=== PATIENT | female | born 1970 | race African-American/Black ===

== ENCOUNTER 2019-08-25 18:04 | Emergency (ER) | payer BC ==
[2019-08-25] MEDS ORDERED: NORMAL SALINE 1000 ML 1,000 ML IV ONE (18:59)
[2019-08-25] MEDS ORDERED: ONDANSETRON 4 MG TAB.RAPDIS PO ONE (19:00)
[2019-08-25] MEDS ORDERED: ACETAMINOPHEN 325 MG TABLET PO ONE (19:00)
--- NOTE | 2019-08-25 19:02 | ER Document Report ---
ED Medical Screen (RME) - General Chief Complaint: Abdominal Pain Stated Complaint: NAUSEA/VOMITING Time Seen by Provider: 08/25/19 18:56 Mode of Arrival: Ambulatory Information source: Patient Notes: 49-year-old female presented to ED for complaint of nausea vomiting and diarrhea. She states about 1:30 in the morning she started with abdominal pain diarrhea and vomiting. She states she is the head at least 20 or 30 diarrhea stools today and vomited 4 times. She states about 730 this morning she started noticing blood in her stool. She is alert oriented respirations regular nonlabored speaking in full sentences. She states she did not come until this evening because she thought it would get better but it has continued so she is come to get evaluated. I have greeted and performed a rapid initial assessment of this patient. A comprehensive ED assessment and evaluation of the patient, analysis of test results and completion of medical decision making process will be conducted by an additional ED providers. - Related Data Allergies/Adverse Reactions: No Known Allergies Allergy (Unverified 08/25/19 18:19) Physical Exam - Vital signs Vitals: Temp Pulse Resp BP Pulse Ox 97.9 F 71 18 173/107 H 99 08/25/19 18:08 08/25/19 18:08 08/25/19 18:08 08/25/19 18:08 08/25/19 18:08 Course - Vital Signs Vital signs: Temp Pulse Resp BP Pulse Ox 97.9 F 71 18 173/107 H 99 08/25/19 18:19 08/25/19 18:08 08/25/19 18:08 08/25/19 18:08 08/25/19 18:08
[2019-08-25] MEDS ORDERED: MORPHINE SULFATE 10 MG/ML INJ IV ONE (19:22)
[2019-08-25] MEDS ORDERED: ONDANSETRON HCL INJ/PF 4 MG/2 ML SDV IV ONE (19:22)
[2019-08-25 19:40] LABS: APPEARANCE,URINE CLEAR; BILIRUBIN,URINE NEGATIVE (NEGATIVE); COLOR,URINE YELLOW; GLUCOSE, URINE NEGATIVE (NEGATIVE); KETONES,URINE NEGATIVE (NEGATIVE); LEUKOCYTE ESTERASE,URINE TRACE (NEGATIVE); NITRITE,URINE NEGATIVE (NEGATIVE); PROTEIN,URINE 100 mg/dL (NEGATIVE); URINE SPECIFIC GRAVITY 1.024; UROBILINOGEN,URINE NEGATIVE mg/dL (<2.0)
[2019-08-25 19:46] LABS: ABSOLUTE LYMPHOCYTES (AUTO) 1.4 10^3/uL (0.5-4.7); ABSOLUTE MONOCYTES (AUTO) 0.5 10^3/uL (0.1-1.4); ABSOLUTE NEUT (AUTO) 6.7 10^3/uL (1.7-8.2); BASOPHILS % (AUTO) 0.5 % (0-2); EOSINOPHILS % (AUTO) 0.1 % (0-6); HEMATOCRIT 39.2 % (36.0-47.0); HEMOGLOBIN 14.1 g/dL (12.0-15.5); LYMPHOCYTES % (AUTO) 16.4 % (13-45); MEAN CORPUSCULAR HEMOGLOBIN 30.5 pg (27.0-33.4); MEAN CORPUSCULAR HGB CONC 35.8 g/dL (32.0-36.0); MEAN CORPUSCULAR VOLUME 85 fl (80-97); PLATELET COUNT 300 10^3/uL (150-450); RED CELL DISTRIBUTION WIDTH 13.7 % (11.5-14.0); TOTAL CELLS COUNTED % (AUTO) 100 %; WHITE BLOOD COUNT 8.7 10^3/uL (4.0-10.5)
[2019-08-25 20:07] LABS: ALBUMIN 4.6 g/dL (3.5-5.0); ALKALINE PHOSPHATASE 50 U/L (38-126); ANION GAP 9 (5-19); ASPARTATE AMINO TRANSFERASE 26 U/L (14-36); BILIRUBIN,TOTAL 0.7 mg/dL (0.2-1.3); BLOOD UREA NITROGEN 10 mg/dL (7-20); CALCIUM 9.7 mg/dL (8.4-10.2); CARBON DIOXIDE 31 mmol/L (22-30); CHLORIDE 101 mmol/L (98-107); GLUCOSE 104 mg/dL (75-110); POTASSIUM 3.2 mmol/L (3.6-5.0); TOTAL PROTEIN 7.7 g/dL (6.3-8.2)
--- NOTE | 2019-08-25 20:13 | ER Document Report ---
ED GI/ - General Chief Complaint: Abdominal Pain Stated Complaint: NAUSEA/VOMITING Time Seen by Provider: 08/25/19 18:56 Primary Care Provider: LUAN MELENDEZ MD [Primary Care Provider] - Follow up as needed Mode of Arrival: Ambulatory Information source: Patient Notes: 49-year-old female past medical history significant for hypertension, palpitations presents to the emergency room complaining of generalized abdominal cramping with multiple episodes of vomiting and diarrhea that started early this morning. States she did notice some blood when she wiped but did not notice any blood in his stool. Denies eating any bad food. Denies any recent antibiotics. Denies any ill contacts. States no one else at home is ill. Denies fevers, no urinary symptoms. TRAVEL OUTSIDE OF THE [place] IN LAST 30 DAYS: No - Related Data Allergies/Adverse Reactions: shellfish derived Allergy (Verified 08/25/19 19:50) Past Medical History - General Information source: Patient - Social History Smoking Status: Never Smoker Frequency of alcohol use: None Drug Abuse: None Lives with: Family Family History: Reviewed & Not Pertinent Patient has homicidal ideation: No - Past Medical History Cardiac Medical History: Reports: Hx Hypertension, Other - Palpitations Review of Systems - Review of Systems Constitutional: No symptoms reported EENT: No symptoms reported Cardiovascular: No symptoms reported Respiratory: No symptoms reported Gastrointestinal: Abdominal pain, Diarrhea, Nausea, Vomiting, Blood streaked bowels Genitourinary: No symptoms reported Musculoskeletal: No symptoms reported Skin: No symptoms reported Neurological/Psychological: No symptoms reported -: Yes All other systems reviewed and negative Physical Exam - Vital signs Vitals: Temp Pulse Resp BP Pulse Ox 97.9 F 71 18 173/107 H 99 08/25/19 18:08 08/25/19 18:08 08/25/19 18:08 08/25/19 18:08 08/25/19 18:08 - General General appearance: Appears well, Alert In distress: Mild - HEENT Head: Normocephalic, Atraumatic Eyes: Normal Pupils: PERRL - Respiratory Respiratory status: No respiratory distress Chest status: Nontender Breath sounds: Normal Chest palpation: Normal - Cardiovascular Rhythm: Regular Heart sounds: Normal auscultation Murmur: No - Abdominal Inspection: Normal Distension: No distension Bowel sounds: Normal Tenderness: Nontender Organomegaly: No organomegaly - Rectal Tenderness: No Stool: Heme negative Hemorrhoids: None - Extremities General upper extremity: Normal inspection, Nontender, Normal color, Normal ROM, Normal temperature General lower extremity: Normal inspection, Nontender, Normal color, Normal ROM, Normal temperature, Normal weight bearing. No: [place]'s sign - Neurological Neuro grossly intact: Yes Cognition: Normal Orientation: AAOx4 Catarino Coma Scale Eye Opening: Spontaneous [place] Coma Scale Verbal: Oriented [place] Coma Scale Motor: Obeys Commands Catarino Coma Scale Total: 15 Speech: Normal Motor strength normal: LUE, RUE, LLE, RLE Sensory: Normal - Psychological Associated symptoms: Normal affect, Normal mood - Skin Skin Temperature: Warm Skin Moisture: Dry Skin Color: Normal Course - Re-evaluation Re-evalutation: 08/25/19 20:52 Patient is resting comfortably she is currently pain-free on exam. Heme- negative rectal exam. Reviewed lab results with patient. Will give 1 dose of p.o. potassium, p.o. challenge, reassess vital signs. Will plan for discharge if vital signs stable and able to tolerate p.o. fluids. 08/25/19 21:46 Patient remains comfortable pain-free, able to tolerate p.o. fluids. Stable to be discharged home counseled on clear liquid diet for the next 24 hours. Zofran as needed for nausea. Recheck with primary care physician if not improving in 2 days. Patient was given strict return to the emergency room guidelines. Return for any new or worsening symptoms. All questions were answered. Patient verbalized understanding and agrees with plan of care. - Vital Signs Vital signs: Temp Pulse Resp BP Pulse Ox 98.3 F 74 20 149/96 H 99 08/25/19 21:27 08/25/19 21:27 08/25/19 21:27 08/25/19 21:27 08/25/19 18:08 - Laboratory Result Diagrams: 08/25/19 19:29 08/25/19 19:29 Laboratory results interpreted by me: 08/25/19 08/25/19 19:05 19:29 Potassium 3.2 L Carbon Dioxide 31 H Urine Protein 100 H Ur Leukocyte Esterase TRACE H Discharge - Discharge Clinical Impression: Hypokalemia Nausea & vomiting Qualifiers: Vomiting type: unspecified Vomiting Intractability: unspecified Qualified Code(s): R11.2 - Nausea with vomiting, unspecified Diarrhea Qualifiers: Diarrhea type: unspecified type Qualified Code(s): R19.7 - Diarrhea, unspecified Condition: Stable Disposition: HOME, SELF-CARE Instructions: Abdominal Pain ([facility]), Antinausea Medication ([facility]), Diarrhea, Nonspecific ([facility]), Vomiting ([facility]), Hypokalemia ([facility]) Additional Instructions: Clear liquid diet for the next 24 hours. Zofran as needed for nausea. Recheck primary care physician 2 days if not improving. Return for any new or worsening symptoms. Referrals: LUAN MELENDEZ MD [Primary Care Provider] - Follow up as needed
[2019-08-25] MEDS ORDERED: POTASSIUM CHLORIDE 10 MEQ TABLET.ER PO ONE (20:33)
[2019-08-25 21:28] VITALS: BP 149/96
[2019-08-25] MEDS ORDERED: ONDANSETRON ODT 4 MG TAB (6 TAB/ER DISP) PO PRN (21:47)
== END 2019-08-25 22:00 | disposition home or self-care (01) ==
LOC: ER 18:04
DX: E87.6 Hypokalemia (principal); R11.2 Nausea with vomiting, unspecified; R19.7 Diarrhea, unspecified; R10.9 Unspecified abdominal pain; R00.2 Palpitations; R10.84 Generalized abdominal pain; I10 Essential (primary) hypertension; Z88.8 Allergy status to other drugs, medicaments and biological substances
CPT/HCPCS: 99284; 96361; 96374; 86900; 86901; 36415; 86850; 83690; 85025; 82270; 80053; 81001; J2270; J2405; J7030